=== PATIENT | female | born 1975 | race Caucasian/White ===

== ENCOUNTER → 2019-04-07 | Outpatient (CLI) | payer BC, OTHER ==
--- NOTE | 2019-04-07 11:05 | REP ---
Clinical: Left foot pain Technique: AP, lateral, bilateral oblique views left foot . Findings: The osseous structures and joint spaces are intact and normal. There is no evidence for acute fracture or dislocation. Surrounding soft tissues are unremarkable. No subcutaneous emphysema or radiodense foreign body. Impression: Age-appropriate left foot series. No obvious acute pathology. Electronically Signed by Trino Lobato MD 04/07/2019 10:57 A
== END ==
LOC: M LRY 10:29
PROVIDERS: ATTEND Nurse Practitioner Family
DX: M79.672 Pain in left foot (principal)

== ENCOUNTER → 2021-05-30 | Outpatient (CLI) | payer BC, OTHER ==
--- NOTE | 2021-05-30 16:55 | REP ---
INDICATION: NECK PAIN. COMPARISON: None. TECHNIQUE: Seven views FINDINGS: There is mild C6-7 disc space narrowing and mild anterior and posterior osteophytic ridging at that level. Flexion and extension is not limited radiographically. Vertebral body height and alignment is within normal limits. The intervertebral foramina are ample bilaterally. The facet joints are well aligned bilaterally. IMPRESSION: Mild chronic changes as described above. <Electronically signed by Fredy Jensen > 05/30/21 [id number]
== END ==
LOC: M WUC 14:20
DX: M54.2 Cervicalgia (principal)

== ENCOUNTER → 2021-06-20 | Outpatient (CLI) | payer BC, OTHER ==
--- NOTE | 2021-06-20 12:56 | REP ---
INDICATION: SCREENING MAMMO. COMPARISON: This the patient's baseline mammogram. TECHNIQUE: Digital screening (2D) mammography was performed bilaterally in the CC and MLO projections. Additionally, breast tomosynthesis (3D mammography) was performed bilaterally in the CC and MLO projections. FINDINGS: By history, the patient has no complaints of a palpable breast abnormality or other significant breast complaints. The Volpara volumetric breast density pattern is b, there are scattered areas of fibroglandular density. In the middle 3rd of the right breast, above and lateral to the nipple, in the upper outer quadrant, at the 10 o'clock position, 7.6 cm from the nipple, there is a group of indeterminate calcifications. In the middle 3rd of the left breast, directly deep to and above the nipple, at the 12 o'clock position, approximately 5 cm from the nipple, there is an oval, circumscribed, isodense mass measuring 8 mm in diameter. IMPRESSION: BIRADS/ACR : Category 0: Incomplete, need additional imaging evaluation. This patient's Tyrer-Cuzick lifetime breast cancer risk assessment score is 8.3%. This mammogram was interpreted with the aid of an FDA-approved computer-aided detection system. The patient states she had a clinical breast exam in May 2021. The patient letter being requested is M0. RECOMMENDATION: Right breast: 2D focal compression with magnification in the CC and MLO orientations, and a true lateral view. Left breast: 2D and 3D focal compression spot images in the CC and MLO orientations, and a left breast ultrasound. <Electronically signed by Yobani Beebe > 06/20/21 [id number]
== END ==
LOC: M WHC 08:55
PROVIDERS: ATTEND Advanced Practice Midwife
DX: Z12.31 Encounter for screening mammogram for malignant neoplasm of breast (principal); N60.11 Diffuse cystic mastopathy of right breast

== ENCOUNTER → 2021-07-03 | Outpatient (CLI) | payer BC, OTHER | LOC: M RAD 17:52 | PROVIDERS: ATTEND Chiropractor | DX: M54.12 Radiculopathy, cervical region (principal); M50.223 Other cervical disc displacement at C6-C7 level; M50.221 Other cervical disc displacement at C4-C5 level; M50.222 Other cervical disc displacement at C5-C6 level; M48.02 Spinal stenosis, cervical region ==

== ENCOUNTER → 2021-07-12 | Outpatient (CLI) | payer BC, OTHER | LOC: M WHC 14:55 | PROVIDERS: ATTEND Advanced Practice Midwife | DX: R92.2 Inconclusive mammogram (principal); N63.21 Unspecified lump in the left breast, upper outer quadrant; N63.11 Unspecified lump in the right breast, upper outer quadrant | CPT/HCPCS: 76642; 77066; G0279 ==

== ENCOUNTER → 2021-11-14 | Outpatient (REF) | payer BC, OTHER ==
[2021-11-14 17:10] LABS: FOLATE > 24.0 NG/ML; VITAMIN B12 LEVEL 1421 PG/ML
== END ==
LOC: M LAB REF 16:11
PROVIDERS: ATTEND Registered Nurse
DX: H02.9 Unspecified disorder of eyelid (principal)

== ENCOUNTER → 2022-06-24 | Outpatient (CLI) | payer BC, OTHER | LOC: M WHC 08:52 | PROVIDERS: ATTEND Obstetrics & Gynecology | DX: Z12.31 Encounter for screening mammogram for malignant neoplasm of breast (principal) ==

== ENCOUNTER → 2023-07-02 | Outpatient (CLI) | payer BC, OTHER | LOC: M WHC 10:00 | PROVIDERS: ATTEND Obstetrics & Gynecology | DX: Z12.31 Encounter for screening mammogram for malignant neoplasm of breast (principal) ==

== ENCOUNTER → 2024-04-20 | Outpatient (CLI) | payer BC, OTHER | LOC: M WUC 10:47 | PROVIDERS: ATTEND Physician Assistant Medical | DX: M79.642 Pain in left hand (principal) ==

== ENCOUNTER → 2024-06-08 | Outpatient (CLI) | payer BC | LOC: M RAD 14:57 | PROVIDERS: ATTEND Physician Assistant | DX: M25.532 Pain in left wrist (principal) ==

== ENCOUNTER → 2024-07-07 | Outpatient (CLI) | payer BC | LOC: M WHC 10:25 | PROVIDERS: ATTEND Obstetrics & Gynecology | DX: Z12.31 Encounter for screening mammogram for malignant neoplasm of breast (principal) ==